=== PATIENT | male | born 1960 | race Caucasian/White ===

== ENCOUNTER 2022-09-24 10:02 | Inpatient (IN) | payer OTHER ==
[~2022-09-24] VITALS: Ht 175.3 cm; Wt 95.2 kg
[~2022-09-24 10:02] MED LIST: CYCL10 PO; OXYACE5T PO
[2022-09-24 11:01] LABS: BASOPHILS ABSOLUTE AUTO 0.05 K/mm3 (0.00-0.23); BASOPHILS PERCENT AUTO 0 % (0-2); EOSINOPHILS ABSOLUTE AUTO 0.33 K/mm3 (0.00-0.68); EOSINOPHILS PERCENT AUTO 3 % (0-6); Hematocrit 37.2 % (37.0-53.0); Hemoglobin 12.6 g/dL (13.5-17.5); IMMATURE GRAN ABSOLUTE AUTO 0.04 K/mm3 (0.00-0.10); IMMATURE GRAN PERCENT AUTO 0 % (0-1); LYMPHOCYTES ABSOLUTE AUTO 1.48 K/mm3 (0.84-5.20); LYMPHOCYTES PERCENT AUTO 13 % (21-46); MONOCYTES ABSOLUTE AUTO 0.88 K/mm3 (0.16-1.47); MONOCYTES PERCENT AUTO 8 % (4-13); Mean Corpuscular HGB 30.6 pg (26.0-34.0); Mean Corpuscular HGB Conc 33.9 g/dL (31.5-36.5); Mean Corpuscular Volume 90 fL (80-100); Mean Platelet Volume 10.2 fL (9.1-12.4); NEUTROPHILS ABSOLUTE AUTO 8.81 K/mm3 (1.96-9.15); NEUTROPHILS PERCENT AUTO 76 % (41-73); Platelet Count 498 K/mm3 (150-400); RDW Coefficient Variation 12.7 % (11.7-14.2); RDW Standard Deviation 41.8 fL (35.1-46.3); Red Blood Cell Count 4.12 M/mm3 (4.30-5.90); White Blood Cell Count 11.59 K/mm3 (4.00-11.30)
[2022-09-24 11:18] LABS: Albumin, Blood 2.8 g/dL (3.4-5.0); Albumin/Globulin Ratio 0.6 (0.8-1.8); Bilirubin, Total 0.3 mg/dL (0.1-1.0); Bun/Creatinine Ratio 26.3 (12.0-20.0); Calcium, Blood 9.1 mg/dL (8.5-10.1); Creatinine, Blood 0.84 mg/dL (0.60-1.20); Potassium, Blood 4.1 mmol/L (3.5-5.5); Total Protein, Blood 7.8 g/dL (6.4-8.2)
[2022-09-24 17:05] LABS: Anti-Xa UFH, PHA Monitoring <0.10 IU/mL; International Normalized Ratio 1.06; Prothrombin Time Results 11.1 Sec (9.7-11.5)
[2022-09-25 01:06] LABS: Hematocrit 34.1 % (37.0-53.0); Hemoglobin 11.5 g/dL (13.5-17.5); Mean Corpuscular HGB 29.9 pg (26.0-34.0); Mean Corpuscular HGB Conc 33.7 g/dL (31.5-36.5); Mean Corpuscular Volume 89 fL (80-100); Mean Platelet Volume 9.7 fL (9.1-12.4); Platelet Count 456 K/mm3 (150-400); RDW Coefficient Variation 12.7 % (11.7-14.2); RDW Standard Deviation 41.6 fL (35.1-46.3); Red Blood Cell Count 3.85 M/mm3 (4.30-5.90); White Blood Cell Count 8.89 K/mm3 (4.00-11.30)
[2022-09-25 01:22] LABS: Anion Gap 6 mmol/L (6-16); Blood Urea Nitrogen 22 mg/dL (8-24); Bun/Creatinine Ratio 25.5 (12.0-20.0); CHOL/HDL RATIO 4.1; CO2, Blood 27 mmol/L (21-32); Calcium, Blood 8.8 mg/dL (8.5-10.1); Chloride, Blood 105 mmol/L (98-108); Cholesterol 185 mg/dL (50-200); Creatinine, Blood 0.86 mg/dL (0.60-1.20); Glomerular Filtration Rate 98 (60-); Glucose, Blood 110 mg/dL (70-99); HDL Cholesterol 45 mg/dL (>39); LDL/HDL RATIO 2.8; Low Density Lipoprotein Chol 124 mg/dL (0-110); Potassium, Blood 3.9 mmol/L (3.5-5.5); Sodium, Blood 138 mmol/L (136-145); Triglycerides 80 mg/dL (30-160); Very Low Density Lipoprot Chol 16 mg/dL (6-32)
--- NOTE | 2022-09-25 18:29 | NUR ---
Shift Summary Pt alert, oriented X4, anxious at times, but cooperative with care. Pt resting in bed, up ind in room, respositioning self in bed. Pt denies pain, chest pain/pressure, nauses, dizziness and numb/tingling. Pt reports "mild" sob, spo2 >90% on ra, breathing even and unlabored. Tele sinus, bp stable. Right raidal site recovered. Vss. No other acute changes noted. Will continue to monitor. Heparin gtt restart post radial site recovery. Plans for npo at midnight for PCI 09/26.
--- NOTE | 2022-09-26 06:08 | NUR ---
SHIFT SUMMARY ASSUMED CARE OF PT AT 1900. DR SHEEHAN TO ROOM TO GET SIGNED CONSENT FOR PROCEDURE IN AM. PT HAD NO ACUTE EVENTS. ON HEPIRIN GTT T/O NIGHT. NPO AT MIDNIGHT. INDEPENDNT WITH ADLS. R RADIAL SITE TENDER BUT FREE OF REDNESS OR SWELLING.
[2022-09-26 06:13] LABS: BASOPHILS ABSOLUTE AUTO 0.05 K/mm3 (0.00-0.23); BASOPHILS PERCENT AUTO 1 % (0-2); EOSINOPHILS ABSOLUTE AUTO 0.54 K/mm3 (0.00-0.68); EOSINOPHILS PERCENT AUTO 6 % (0-6); Hematocrit 38.7 % (37.0-53.0); Hemoglobin 13.2 g/dL (13.5-17.5); IMMATURE GRAN ABSOLUTE AUTO 0.03 K/mm3 (0.00-0.10); IMMATURE GRAN PERCENT AUTO 0 % (0-1); LYMPHOCYTES ABSOLUTE AUTO 1.78 K/mm3 (0.84-5.20); LYMPHOCYTES PERCENT AUTO 18 % (21-46); MONOCYTES ABSOLUTE AUTO 1.04 K/mm3 (0.16-1.47); MONOCYTES PERCENT AUTO 11 % (4-13); Mean Corpuscular HGB 29.9 pg (26.0-34.0); Mean Corpuscular HGB Conc 34.1 g/dL (31.5-36.5); Mean Corpuscular Volume 88 fL (80-100); Mean Platelet Volume 9.9 fL (9.1-12.4); NEUTROPHILS ABSOLUTE AUTO 6.37 K/mm3 (1.96-9.15); NEUTROPHILS PERCENT AUTO 65 % (41-73); Platelet Count 513 K/mm3 (150-400); RDW Coefficient Variation 12.7 % (11.7-14.2); RDW Standard Deviation 40.8 fL (35.1-46.3); Red Blood Cell Count 4.42 M/mm3 (4.30-5.90); White Blood Cell Count 9.81 K/mm3 (4.00-11.30)
[2022-09-26 06:39] LABS: Albumin, Blood 2.5 g/dL (3.4-5.0); Anion Gap 5 mmol/L (6-16); Blood Urea Nitrogen 16 mg/dL (8-24); Bun/Creatinine Ratio 19.6 (12.0-20.0); CO2, Blood 26 mmol/L (21-32); Calcium, Blood 9.1 mg/dL (8.5-10.1); Chloride, Blood 103 mmol/L (98-108); Creatinine, Blood 0.82 mg/dL (0.60-1.20); Glomerular Filtration Rate 99 (60-); Glucose, Blood 116 mg/dL (70-99); Phosphorus, Blood 3.7 mg/dL (2.5-4.9); Potassium, Blood 4.2 mmol/L (3.5-5.5); Sodium, Blood 134 mmol/L (136-145)
[2022-09-26 11:44] LABS: Prostate Specific Antigen 0.346 ng/mL (0.000-4.000)
[2022-09-26 11:45] LABS: Carcinoembryonic Antigen 1.6 ng/mL (0.0-3.0)
[2022-09-26 11:49] LABS: Cancer Antigen 19-9 <2.0 U/mL (2.0-37.0)
--- NOTE | 2022-09-26 13:28 | NUR ---
UPDATE CASHIER TUBE ROOM ASKED THIS RN TO INFORM DR SHULTZ OF PT DECISION TO HAVE A CABG DONE INSTEAD OF HEADIG TO RN LABOR DELIVERY FOR ANGIO. DR SHULTZ INFORMED AT 1326 OF PT DECISION AND THAT PT IS AAITING PLACEMENT.
--- NOTE | 2022-09-26 18:18 | NUR ---
SHIFT SUMMARY PT A/OX4 AND COOPERATIVE OF CARE. VSS THROUGHOUT SHIFT WITH O2 SATS IN THE 90'S ON RA. NO REPORT OF CHEST PAIN/PRESSURE THROUGHOUT SHIFT. NO REPORT OF SOB/DYSPNEA THROUGHOUT SHIFT. PT SEEN BY CARDIOLOGY TODAY AND DISCUSSED NEEDING A CABG VERSUS HAVING AND ANGIO. AFTER RECIEVING A SECOND OPINION FROM ANOTHER BACTERIOLOGIST INDUSTRIAL, PT AGREED TO HAVE THE CABG, HOSPITALIST INFORMED. DR JO HAS ACCEPTED PT AND IS AWAITING FOR A BED TO BECOME AVAILABLE. RIGHT RADIAL SITE C/D/I, NO SWELLING NOTED, ARM BOARD REMAINS IN PLACE. PT INDEPDENT IN ROOM, AMBULATING TO BATHROOM ON HIS OWN. HEP GTT RUNNING PER EMAR. DR PLUNKETT CAME TO DISCUSS IMAGING RESULTS WITH PT.
--- NOTE | 2022-09-26 20:57 | NUR ---
ASSUMED CARE AT 1900 PT LAYING IN BED WATCHING TV AT SHIFT CHANGE. HE IS A/O X4 AND ABLE TO MAKE HIS NEEDS KNOWN. VSS. ON RA. NO C/O CHEST PAIN OR PRESSURE, NO C/O DYSPNEA. RT RADIAL SITE FROM ANGIO SHOWS NO SIGNS OF BLEEDING OR HEMATOMA; TEGADERM DRESSING C/D/I; CONT TO KEEP ARM BOARD ON A REMINDER TO LIMIT USE. USES URINAL INDEPENDENTLY. HEPARIN INFUSING AT 21UNITS/KG/HR. SEE SHIFT ASSESSMENT FOR FULL ASSESSMENT.
[2022-09-27 01:26] LABS: BASOPHILS ABSOLUTE AUTO 0.05 K/mm3 (0.00-0.23); BASOPHILS PERCENT AUTO 1 % (0-2); EOSINOPHILS PERCENT AUTO 6 % (0-6); Hematocrit 37.7 % (37.0-53.0); Hemoglobin 12.6 g/dL (13.5-17.5); IMMATURE GRAN ABSOLUTE AUTO 0.02 K/mm3 (0.00-0.10); IMMATURE GRAN PERCENT AUTO 0 % (0-1); LYMPHOCYTES ABSOLUTE AUTO 2.13 K/mm3 (0.84-5.20); LYMPHOCYTES PERCENT AUTO 21 % (21-46); MONOCYTES ABSOLUTE AUTO 1.12 K/mm3 (0.16-1.47); MONOCYTES PERCENT AUTO 11 % (4-13); Mean Corpuscular HGB 29.4 pg (26.0-34.0); Mean Corpuscular HGB Conc 33.4 g/dL (31.5-36.5); Mean Corpuscular Volume 88 fL (80-100); Mean Platelet Volume 9.6 fL (9.1-12.4); NEUTROPHILS ABSOLUTE AUTO 6.07 K/mm3 (1.96-9.15); NEUTROPHILS PERCENT AUTO 61 % (41-73); Platelet Count 494 K/mm3 (150-400); RDW Coefficient Variation 12.6 % (11.7-14.2); RDW Standard Deviation 41.2 fL (35.1-46.3); Red Blood Cell Count 4.28 M/mm3 (4.30-5.90); White Blood Cell Count 9.99 K/mm3 (4.00-11.30)
[2022-09-27 01:42] LABS: Albumin, Blood 2.5 g/dL (3.4-5.0); Anion Gap 6 mmol/L (6-16); Blood Urea Nitrogen 23 mg/dL (8-24); CO2, Blood 27 mmol/L (21-32); Calcium, Blood 8.9 mg/dL (8.5-10.1); Chloride, Blood 101 mmol/L (98-108); Creatinine, Blood 0.92 mg/dL (0.60-1.20); Glomerular Filtration Rate 94 (60-); Glucose, Blood 120 mg/dL (70-99); Phosphorus, Blood 3.5 mg/dL (2.5-4.9); Potassium, Blood 3.9 mmol/L (3.5-5.5); Sodium, Blood 134 mmol/L (136-145)
--- NOTE | 2022-09-27 05:27 | NUR ---
END OF SHIFT SUMMARY NO ACUTE EVENTS OVERNIGHT. HE SLEPT T/O THE NIGHT. NO CHANGES IN NEURO STATUS. VSS. CONT TO BE ON RA. RT RADIAL SITE SHOWS NO CHANGES. NO C/O CHEST PAIN, CHEST TIGHTNESS, OR DYSPNEA. USES URINAL INDEPENDENTLY IN ROOM. HEPARIN CONT TO INFUSE AT 21UNITS/KG/HR. WILL REPORT TO AM RN WHEN AVAILABLE.
--- NOTE | 2022-09-27 17:19 | NUR ---
UPDATE UBALDOSAM RN CONTACTED THIS RN AT 1720 TO INFORM THAT THE PT WILL NOT BE ABLE TO TRANSFER TODAY. THIS RN WAS INFORMED THAT A MEDICAL EMERGENCY TOOK PRIORITY AND THAT [facility] WILL CONTACT [facility] TOMORROW 09/28 FOR UPDATE ON NEXT AVAILABLE BED. PLANT ACCOUNTANT INFORMED OF CONVERSATION. CONTACTED AND INFORMED OF TRANSFER DELAY.
--- NOTE | 2022-09-27 17:42 | NUR ---
SHIFT SUMMARY PT A/X4 AND COOPERATIVE OF CARE. PT ABLE TO EXPRESS NEEDS AND CALLS APPROPIATE. VSS THROUGHOUT SHIFT WITH 02 SATS IN THE 90'S ON RA. NO REPORT OF CHEST PAIN/PRESSURE THROUGHOUT SHIFT. NO REPORT OF SOB/DYSPNEA THROUGHOUT SHIFT. PT INDEPENDENT IN ROOM. HEP GTT RUNNING PER EMAR. RIGHT RADIAL SITE WNL. AWAITING FOR A BED TO TRANSFER TO [facility] FOR CABG.
[2022-09-28 04:04] LABS: BASOPHILS ABSOLUTE AUTO 0.04 K/mm3 (0.00-0.23); BASOPHILS PERCENT AUTO 0 % (0-2); EOSINOPHILS ABSOLUTE AUTO 0.68 K/mm3 (0.00-0.68); EOSINOPHILS PERCENT AUTO 8 % (0-6); Hematocrit 39.5 % (37.0-53.0); Hemoglobin 13.2 g/dL (13.5-17.5); IMMATURE GRAN ABSOLUTE AUTO 0.04 K/mm3 (0.00-0.10); IMMATURE GRAN PERCENT AUTO 0 % (0-1); LYMPHOCYTES ABSOLUTE AUTO 2.05 K/mm3 (0.84-5.20); LYMPHOCYTES PERCENT AUTO 23 % (21-46); MONOCYTES ABSOLUTE AUTO 1.08 K/mm3 (0.16-1.47); MONOCYTES PERCENT AUTO 12 % (4-13); Mean Corpuscular HGB 29.3 pg (26.0-34.0); Mean Corpuscular HGB Conc 33.4 g/dL (31.5-36.5); Mean Corpuscular Volume 88 fL (80-100); Mean Platelet Volume 10.1 fL (9.1-12.4); NEUTROPHILS ABSOLUTE AUTO 5.15 K/mm3 (1.96-9.15); NEUTROPHILS PERCENT AUTO 57 % (41-73); Platelet Count 488 K/mm3 (150-400); RDW Coefficient Variation 12.7 % (11.7-14.2); RDW Standard Deviation 40.4 fL (35.1-46.3); Red Blood Cell Count 4.51 M/mm3 (4.30-5.90); White Blood Cell Count 9.04 K/mm3 (4.00-11.30)
[2022-09-28 04:21] LABS: Albumin, Blood 2.6 g/dL (3.4-5.0); Anion Gap 5 mmol/L (6-16); Blood Urea Nitrogen 21 mg/dL (8-24); Bun/Creatinine Ratio 23.6 (12.0-20.0); CO2, Blood 26 mmol/L (21-32); Calcium, Blood 9.1 mg/dL (8.5-10.1); Chloride, Blood 103 mmol/L (98-108); Creatinine, Blood 0.89 mg/dL (0.60-1.20); Glomerular Filtration Rate 97 (60-); Glucose, Blood 112 mg/dL (70-99); Phosphorus, Blood 3.4 mg/dL (2.5-4.9); Sodium, Blood 134 mmol/L (136-145)
--- NOTE | 2022-09-28 06:50 | NUR ---
SHIFT SUMMARY: A&OX4. ABLE TO MAKE NEEDS KNOWN. DENIES ANY SYMPTOMS OF SOB OR CHEST PAIN DURTHING MY SHIFT. HR HAS BEEN SR IN THE 70'S-80'S. O2 SATS > 92% ON RA. AMBULATING INDEPENDTLY IN ROOM. VOIDING CLEAR, YELLOW URINE WITHOUT DIFFICULTY. NO ACUTE CHANGES NOTED DURING THIS SHIFT.
--- NOTE | 2022-09-28 08:00 | NUR ---
Received report from Rola FLORES. Patient sitting up in bed awaiting transfer, He is alert and oriente and is able to communicate his needs. He is on RA and sats >90%.He is set up for breakfast and is independent with eating, transfer and positioning. He has 20 ga IV to LW and LAC both WNL and flushed. His LW is infusing Heparin at 21 unit/kg/hr. Temp 97.3. MAEW. Patient denies any current needs.
--- NOTE | 2022-09-28 14:51 | NUR ---
Patient just left by ambulance and had transfer packet and went to and printed disc to go with patient. He had a blck carry on imani with belongings. He had heparin infusing at 21 units/kg/hr in LW 20 ga IV. He was independent in room and self transferred to [facility]. called report post transfer.
[2022-09-30 15:10] LABS: A/G RATIO 0.7 (0.7-1.7); ALBUMIN 2.9 g/dL (2.9-4.4); ALPHA-1-GLOBULIN 0.4 g/dL (0.0-0.4); ALPHA-2-GLOBULIN 1.1 g/dL (0.4-1.0); GAMMA GLOBULIN 1.4 g/dL (0.4-1.8); GLOBULIN, TOTAL 3.9 g/dL (2.2-3.9); M-SPIKE Not Observed g/dL (Not Observed); PROTEIN, TOTAL, SERUM 6.8 g/dL (6.0-8.5)
== END 2022-09-28 14:15 | disposition short-term general hospital (02) | DRG 280 ==
LOC: ER 10:02 → PCU 10:03
PROVIDERS: Family Medicine; Internal Medicine Hematology & Oncology; Nurse Practitioner Acute Care; Physician Assistant; ADMIT Internal Medicine
PROC: 3E02340 Introduction of Influenza Vaccine into Muscle, Percutaneous Approach (ICD-10-PCS; 2022-09-24)
PROC: 4A023N7 Measurement of Cardiac Sampling and Pressure, Left Heart, Percutaneous Approach (ICD-10-PCS; principal; 2022-09-25)
PROC: B211YZZ Fluoroscopy of Multiple Coronary Arteries using Other Contrast (ICD-10-PCS; 2022-09-25)
PROC: B240ZZ3 Ultrasonography of Single Coronary Artery, Intravascular (ICD-10-PCS; 2022-09-25)
DX: I21.4 Non-ST elevation (NSTEMI) myocardial infarction (principal); I50.41 Acute combined systolic (congestive) and diastolic (congestive) heart failure; E87.1 Hypo-osmolality and hyponatremia; C85.90 Non-Hodgkin lymphoma, unspecified, unspecified site; I25.10 Atherosclerotic heart disease of native coronary artery without angina pectoris; R59.1 Generalized enlarged lymph nodes; F17.210 Nicotine dependence, cigarettes, uncomplicated; F10.10 Alcohol abuse, uncomplicated; D64.9 Anemia, unspecified; D75.839 Thrombocytosis, unspecified; H26.9 Unspecified cataract; R94.31 Abnormal electrocardiogram [ECG] [EKG]; I27.20 Pulmonary hypertension, unspecified; E88.09 Other disorders of plasma-protein metabolism, not elsewhere classified; I11.0 Hypertensive heart disease with heart failure; I08.3 Combined rheumatic disorders of mitral, aortic and tricuspid valves; R91.8 Other nonspecific abnormal finding of lung field; E78.5 Hyperlipidemia, unspecified; Z71.6 Tobacco abuse counseling; Z71.41 Alcohol abuse counseling and surveillance of alcoholic; Z23 Encounter for immunization; Z98.49 Cataract extraction status, unspecified eye; Z59.00 Homelessness unspecified
CPT/HCPCS: 36415; 71046; 71260; 74177; 76937; 80048; 80053; 80061; 80069; 82378; 83036; 83735; 83880; 84145; 84165; 84484; 85025; 85027; 85347; 85379; 85520; 85610; 85730; 86301; 88184; 88185; 90686; 93005; 93010; 93458; 96374-59; 96375; 96376; 99152; 99153; 99285-25; A9270; C1769; C1887; C1894; C8929; G0008; G0103; G0378; J1644; J1940; J2250; J3010; J7030; J7050; Q9957; Q9967